=== PATIENT | male | born 1960 | race Caucasian/White ===

== ENCOUNTER 2017-01-21 14:25 | Emergency (ER) | payer OTHER ==
--- NOTE | ~2017-01-21 | CN ---
Consultation Report [place] [id number] [facility] [place]. [address] NAME: RICKY COREA : 64 STATUS : DEP ER PAT#: [id number] AGE: 56 ADM/REG DATE : 01/21/17 MR#: [id number] REPORT SERV DATE: 01/22/17 DICTATED BY: JOHAN RODNEY DATE: 01/22/17 REPORT STATUS : Draft TRANSCRIBED BY: MODL DATE: 01/22/17 CONSULTATION DATE OF CONSULTATION: 01/21/2017 REFERRING PHYSICIAN: Emergency room. REASON FOR CONSULTATION: Abdominal pain. HISTORY OF PRESENT ILLNESS: Mr. Corea reports an approximately one month history of decreased appetite. Denies any nausea, or fever or chills. Over the last week, he developed some lower back pain that radiates to his right testicle. He also reports severe pain with ejaculation that lasts for several minutes afterwards. He apparently was diagnosed with the urinary tract infection last week, and was placed on antibiotics. He has otherwise been in good health prior to a month ago. PAST MEDICAL HISTORY: Includes hypertension. PAST SURGICAL HISTORY: No abdominal surgery. SOCIAL HISTORY: The patient is . Denies any significant alcohol or tobacco use. REVIEW OF SYSTEMS: Other than those described above are negative. PHYSICAL EXAMINATION: VITAL SIGNS: He is afebrile. Vital signs are stable. GENERAL: Awake and alert, pleasant 56-year-old gentleman. HEENT: Grossly normal. NECK: Supple. No palpable masses. HEART: Regular rate and rhythm. LUNGS: Clear. ABDOMEN: Soft and nondistended. Minimal lower abdominal tenderness. No peritoneal signs. Significant CVA tenderness with palpation. EXTREMITIES: Show no cyanosis, clubbing, or edema. DIAGNOSTIC DATA: CT of the abdomen showed what looked to be a slightly dilated appendix, that was fluid filled. No inflammatory changes surrounding it. No other abdominal abnormalities. LABORATORY WORKUP: Include, CBC and BMP were normal and urinalysis was normal. IMPRESSION: 56-year-old gentleman with lower back pain, and CVA tenderness. This does not appear to be at all related to his appendix. Essentially, his abdominal exam is normal. He Consultation Report [place] [id number] [facility] [place]. [address] NAME: RICKY COREA : 64 STATUS : DEP ER PAT#: [id number] AGE: 56 ADM/REG DATE : 01/21/17 MR#: [id number] REPORT SERV DATE: 01/22/17 DICTATED BY: JOHAN RODNEY DATE: 01/22/17 REPORT STATUS : Draft TRANSCRIBED BY: LUKE DATE: 01/22/17 does have some neurologic issues which I have recommended he followup with his urologist. From my standpoint, he will be discharged home today, if he is able to tolerate p.o. JENN/LUKE Johan Rodney M.D. / [id number] CC: MIKE HOLLEY
[2017-01-21 12:09] LABS: BASOPHILS 0.1 %; BASOPHILS ABSOLUTE 0.01 10/3/uL (0.0-0.16); EOSINOPHILS 0.3 %; EOSINOPHILS ABSOLUTE 0.02 10/3/uL (0.0-0.53); HEMATOCRIT 45.9 % (40.0-51.0); IMMATURE GRANULOCYTES 0.1 %; IMMATURE GRANULOCYTES ABSOLUTE 0.01 10/3/uL (0.0-0.11); LYMPHOCYTES ABSOLUTE 1.81 10/3/uL (0.67-4.30); MEAN CORPUS HGB CONC 34.9 g/dL (32.0-36.0); MEAN CORPUSCULAR HEMOGLOB 31.7 pg (26.0-34.0); MEAN CORPUSCULAR VOLUME 91.1 fL (80-100); MEAN PLATELET VOLUME 9.5 fL (9.2-13.0); MONOCYTES 8.4 %; MONOCYTES ABSOLUTE 0.63 10/3/uL (0.21-1.20); NEUTROPHILS 67.1 %; NEUTROPHILS ABSOLUTE 5.05 10/3/uL (2.02-8.40); PLATELET COUNT 174 10/3/uL (150-400); RBC DISTRIBUTION WIDTH 15.5 % (12.0-16.0); RED CELL COUNT 5.04 10/6/uL (4.7-6.1); WHITE BLOOD CELLS 7.5 10/3/uL (4.5-10.5)
[2017-01-21 12:14] LABS: ASCORBIC ACID (UR NOT ORDER) NEG (NEG); BILIRUBIN, URINE NEGATIVE (NEG); ER URINALYSIS TAT 0 Hrs 11 Mins; KETONE, URINE NEGATIVE (NEG); LEUKOCYTE ESTERASE(NOT OR NEG (NEG); NITRITE (URINE) NEG (NEG); WBC (NOT ORDERED) (RFLEX) 3 (0-5)
[2017-01-21 12:16] LABS: MANUAL DIFF NO %
[2017-01-21 12:29] LABS: A/G RATIO 0.9 (0.7-1.9); ALBUMIN 3.7 G/DL (3.5-5.0); ALKALINE PHOSPHATASE 48 U/L (45-117); BUN (BLOOD UREA NITROGEN) 17 MG/DL (6-23); CALCIUM, SERUM 9.3 MG/DL (8.5-10.4); CHLORIDE, SERUM 102 MMOL/L (96-112); CO2 (CARBON DIOXIDE) 31 MMOL/L (24-34); CREATININE 1.16 MG/DL (0.70-1.30); GFR AFRICAN AMERICAN 82 ML/MIN (>=60); GFR NON AFRICAN AMERICAN 71 ML/MIN (>=60); GLUCOSE, SERUM 95 MG/DL (60-99); POTASSIUM, SERUM 3.7 MMOL/L (3.5-5.3); SGOT(AST) 14 U/L (5-40); SGPT(ALT) 32 U/L (5-65); SODIUM, SERUM 137 MMOL/L (135-148); TOTAL BILIRUBIN 0.8 MG/DL (0-1.2); TOTAL PROTEIN 7.7 G/DL (6.0-8.5)
== END 2017-01-21 18:28 | disposition home or self-care (01) ==
LOC: ER 14:25
PROVIDERS: Nurse Practitioner
DX: R10.31 Right lower quadrant pain (principal); I10 Essential (primary) hypertension; Z87.442 Personal history of urinary calculi
CPT/HCPCS: 74176; 80053; 81001; 83690; 85025; 96374; 99284; J1170; J2405

== ENCOUNTER 2017-01-24 10:41 | Emergency (ER) | payer OTHER ==
[2017-01-24 11:36] LABS: ASCORBIC ACID (UR NOT ORDER) NEG (NEG); BILIRUBIN, URINE NEGATIVE (NEG); ER URINALYSIS TAT 0 Hrs 16 Mins; KETONE, URINE NEGATIVE (NEG); LEUKOCYTE ESTERASE(NOT OR NEG (NEG); NITRITE (URINE) NEG (NEG); WBC (NOT ORDERED) (RFLEX) 3 (0-5)
== END 2017-01-24 13:18 | disposition home or self-care (01) ==
LOC: ER 10:41
PROVIDERS: Physician Assistant Medical
DX: N41.9 Inflammatory disease of prostate, unspecified (principal); F32.9 Major depressive disorder, single episode, unspecified; Z87.442 Personal history of urinary calculi
CPT/HCPCS: 81001; 99283